=== PATIENT | male | born 1945 | race Caucasian/White ===

== ENCOUNTER 2021-09-23 07:51 | Day surgery (SDC) | payer MEDICARE ==
[~2021-09-23] VITALS: Ht 188 cm; Wt 104.9 kg
[2021-09-23] VITALS (10 sets, daily range): BP systolic 139–165; BP diastolic 81–112
[2021-09-23] MEDS ORDERED: diphenhydrAMINE 25mg capsule PO PRN (08:20)
[2021-09-23] MEDS ORDERED: normal saline 1,000 ML IV SCH (08:20)
[2021-09-23] MEDS ORDERED: POTA8TAB69 PO (08:24)
[2021-09-23] MEDS ORDERED: METF-438 PO (08:24)
[2021-09-23] MEDS ORDERED: FLO0.4C PO (08:24)
[2021-09-23] MEDS ORDERED: TERA10CA4 PO (08:24)
[2021-09-23] MEDS ORDERED: EMPA10TA PO (08:24)
[2021-09-23] MEDS ORDERED: METO200T49 PO (08:24)
[2021-09-23] MEDS ORDERED: FINA5TAB11 PO (08:24)
[2021-09-23] MEDS ORDERED: SIMV10TA98 PO (08:24)
[2021-09-23] MEDS ORDERED: ZOLP5TAB8 PO (08:24)
[2021-09-23] MEDS ORDERED: Vitamin B12 (08:28)
[2021-09-23] MEDS ORDERED: LOSA50TA3 PO (08:28)
[2021-09-23] MEDS ORDERED: cinnamon (08:28)
[2021-09-23] MEDS ORDERED: APIX5TAB3 PO (08:28)
[2021-09-23] MEDS ORDERED: NITR0.4T48 SL (08:28)
[2021-09-23] MEDS ORDERED: Vitamin D (08:32)
[2021-09-23] MEDS ORDERED: Cholestyramine (08:32)
[2021-09-23 08:41] LABS: BASOPHILS % (AUTO) 0.9 % (0-1); EOSINOPHILS # (AUTO) 0.1 X10'3 (0-0.9); HEMATOCRIT 42.2 % (42.0-52.0); HEMOGLOBIN 14.6 g/dl (14.0-17.9); LYMPHOCYTES # (AUTO) 0.7 X10'3 (1.1-4.8); LYMPHOCYTES % (AUTO) 13.4 % (21-51); MEAN CORPUSCULAR HEMOGLOBIN 32.3 PG (27.0-31.0); MEAN CORPUSCULAR HGB CONC 34.5 g/dL (33.0-36.5); MEAN CORPUSCULAR VOLUME 93.8 FL (78-98); MEAN PLATELET VOLUME 8.4 FL (7.4-10.4); MONOCYTES # (AUTO) 0.7 X10'3 (0-0.9); MONOCYTES % (AUTO) 11.7 % (2-12); PLATELET COUNT 141 X10'3 (140-440); RED CELL DISTRIBUTION WIDTH 14.4 % (11.5-14.5); WHITE BLOOD COUNT 5.6 X10'3 (4.5-11.0)
[2021-09-23 08:52] LABS: ALBUMIN 3.7 G/DL (3.4-5.0); ANION GAP 10 (8-16); BLOOD UREA NITROGEN 16 MG/DL (7-18); BUN/CREATININE RATIO 16.2 (5.4-32.0); CALCIUM 8.5 MG/DL (8.5-10.1); CHLORIDE 108 MMOL/L (99-107); CREATININE 0.99 MG/DL (0.60-1.10); GLUCOSE 166 MG/DL (70-104); POTASSIUM 4.2 MMOL/L (3.5-5.1); SODIUM 145 MMOL/L (135-145); TOTAL CARBON DIOXIDE 26.8 MMOL/L (24-32); eGFR 73 ML/MIN
[2021-09-23] MEDS ORDERED: verapamil 2.5 mg/ml inj IV ONE (12:11)
[2021-09-23] MEDS ORDERED: nitroGLYCERIN-Tridil 50MG/D5W 250 ML IV ONE (12:11)
[2021-09-23] MEDS ORDERED: midazolam 1 mg/ML 2ml injection ONE ×2 (12:11→13:30)
[2021-09-23] MEDS ORDERED: fentaNYL/PF 50MCG/1 ML 2ML syringe ONE (12:11)
[2021-09-23] MEDS ORDERED: heparin 1,000unit/ml 10ml vial 10 ML ONE (12:11)
[2021-09-23] MEDS ORDERED: iohexol 350MG/ML 100ml bottle IV ONE ×3 (12:12→13:18)
[2021-09-23] MEDS ORDERED: ticagrelor 90mg tablet ONE (13:55)
[2021-09-23] MEDS ORDERED: cloNIDine 0.1 mg tablet PO ONE (14:25)
[2021-09-23] MEDS ORDERED: HYDROcodone/acetaminophen 5mg/325mg tablet PO PRN (14:35)
[2021-09-23] MEDS ORDERED: HYDROcodone/acetaminophen 10/325mg tab PO PRN (14:35)
== END 2021-09-23 18:13 | disposition home or self-care (01) ==
LOC: SSTAY O 07:51
PROVIDERS: ATTEND Internal Medicine Cardiovascular Disease
DX: R94.39 Abnormal result of other cardiovascular function study (principal); R06.09 Other forms of dyspnea; I25.10 Atherosclerotic heart disease of native coronary artery without angina pectoris; E11.9 Type 2 diabetes mellitus without complications; G47.33 Obstructive sleep apnea (adult) (pediatric); I10 Essential (primary) hypertension; E78.5 Hyperlipidemia, unspecified; Z87.891 Personal history of nicotine dependence; Z79.84 Long term (current) use of oral hypoglycemic drugs; Z79.899 Other long term (current) drug therapy
CPT/HCPCS: 36415; 80048; 83735; 85025; 85610; 92920; 93005; 93458; 99152; 99153; C1725; C1751; C1769; C1894; J1644; J2250; J3010; J3490; J7030; Q0163; Q9967; A5120; A6258; A6449; C1761

== ENCOUNTER 2021-09-27 07:50 | Day surgery (SDC) | payer MEDICARE ==
[2021-09-27] VITALS (10 sets, daily range): BP systolic 107–139; BP diastolic 70–91
[~2021-09-27] VITALS: Ht 188 cm; Wt 104.1 kg
[~2021-09-27 07:50] MED LIST: APIX5TAB3 PO; Cholestyramine; EMPA10TA PO; FINA5TAB11 PO; FLO0.4C PO; LOSA50TA3 PO; METF-438 PO; METO200T49 PO; NITR0.4T48 SL; POTA8TAB69 PO; SIMV10TA98 PO; TERA10CA4 PO; Vitamin B12; Vitamin D; ZOLP5TAB8 PO; cinnamon
[2021-09-27] MEDS ORDERED: diphenhydrAMINE 25mg capsule PO PRN (08:10)
[2021-09-27] MEDS ORDERED: normal saline 1,000 ML IV SCH (08:10)
[2021-09-27 08:48] LABS: BASOPHILS % (AUTO) 0.5 % (0-1); EOSINOPHILS # (AUTO) 0.2 X10'3 (0-0.9); HEMATOCRIT 44.8 % (42.0-52.0); HEMOGLOBIN 15.3 g/dl (14.0-17.9); LYMPHOCYTES # (AUTO) 0.7 X10'3 (1.1-4.8); LYMPHOCYTES % (AUTO) 11.8 % (21-51); MEAN CORPUSCULAR HEMOGLOBIN 31.9 PG (27.0-31.0); MEAN CORPUSCULAR HGB CONC 34.2 g/dL (33.0-36.5); MEAN CORPUSCULAR VOLUME 93.2 FL (78-98); MEAN PLATELET VOLUME 8.7 FL (7.4-10.4); MONOCYTES # (AUTO) 0.6 X10'3 (0-0.9); MONOCYTES % (AUTO) 9.9 % (2-12); NEUTROPHILS # (AUTO) 4.2 X10'3 (1.8-7.7); NEUTROPHILS % (AUTO) 74.8 % (42-75); PLATELET COUNT 164 X10'3 (140-440); RED CELL DISTRIBUTION WIDTH 14.4 % (11.5-14.5); WHITE BLOOD COUNT 5.6 X10'3 (4.5-11.0)
[2021-09-27 09:00] LABS: ANION GAP 10 (8-16); BLOOD UREA NITROGEN 19 MG/DL (7-18); BUN/CREATININE RATIO 17.1 (5.4-32.0); CALCIUM 8.9 MG/DL (8.5-10.1); CHLORIDE 106 MMOL/L (99-107); CREATININE 1.11 MG/DL (0.60-1.10); GLUCOSE 186 MG/DL (70-104); MAGNESIUM 2.1 MG/DL (1.5-2.4); POTASSIUM 4.5 MMOL/L (3.5-5.1); SODIUM 142 MMOL/L (135-145); TOTAL CARBON DIOXIDE 26.4 MMOL/L (24-32); eGFR 64 ML/MIN
[2021-09-27] MEDS ORDERED: TICA90TA2 PO (09:50)
[2021-09-27] MEDS ORDERED: LIDOcaine 1% 30ml preserv. free vial ONE (13:28)
[2021-09-27] MEDS ORDERED: midazolam 1 mg/ML 2ml injection ONE (13:28)
[2021-09-27] MEDS ORDERED: fentaNYL/PF 50MCG/1 ML 2ML syringe ONE ×2 (13:28→15:02)
[2021-09-27] MEDS ORDERED: heparin 1,000unit/ml 10ml vial 10 ML ONE (13:28)
[2021-09-27] MEDS ORDERED: iohexol 350MG/ML 100ml bottle IV ONE (13:29)
[2021-09-27] MEDS ORDERED: nitroGLYCERIN-Tridil 50MG/D5W 250 ML IV ONE (14:45)
[2021-09-27] MEDS ORDERED: proCHLORperazine 10 MG/2 ml inj IV PRN (15:30)
[2021-09-27] MEDS ORDERED: acetaminophen 325mg tablet PO PRN (15:30)
[2021-09-27] MEDS ORDERED: HYDROcodone/acetaminophen 10/325mg tab PO PRN (15:30)
[2021-09-27] MEDS ORDERED: ondansetron/PF 4mg/2ml inj IV PRN (15:30)
[2021-09-27] MEDS ORDERED: HYDROcodone/acetaminophen 5mg/325mg tablet PO PRN (15:30)
[2021-09-27] MEDS ORDERED: furosemide 20 MG/2 ML vial IV ONE (16:30)
--- NOTE | 2021-09-27 17:09 | NUR ---
Patient received stent x 1 during angiogram. New order for 180 mg Brilinta Once.
[2021-09-27] MEDS ORDERED: ticagrelor 90mg tablet PO ONE (17:10)
== END 2021-09-27 19:00 | disposition home or self-care (01) ==
LOC: SSTAY O 07:50
PROVIDERS: ATTEND Internal Medicine Cardiovascular Disease
DX: R94.39 Abnormal result of other cardiovascular function study (principal); I25.10 Atherosclerotic heart disease of native coronary artery without angina pectoris; I10 Essential (primary) hypertension; E78.5 Hyperlipidemia, unspecified; E11.9 Type 2 diabetes mellitus without complications; Z88.0 Allergy status to penicillin; Z88.8 Allergy status to other drugs, medicaments and biological substances; Z87.891 Personal history of nicotine dependence; Z79.01 Long term (current) use of anticoagulants; Z79.899 Other long term (current) drug therapy
CPT/HCPCS: 36415; 80048; 82948; 83735; 85025; 85610; 86885; 86900; 86901; 86920; 92978; 93005; 99152; 99153; C1725; C1753; C1760; C1769; C1874; C1894; C9602; J1644; J1940; J2250; J3010; J3490; J7030; Q0163; Q9967; A4620; A6258; A6402; A6449; C1724

== ENCOUNTER 2022-02-04 12:06 | Outpatient (CLI) | payer MEDICARE ==
[~2022-02-04 12:06] MED LIST changes: -Cholestyramine; -EMPA10TA PO; -METF-438 PO; -METO200T49 PO; -NITR0.4T48 SL; -POTA8TAB69 PO; -Vitamin B12; -Vitamin D; -ZOLP5TAB8 PO; -cinnamon
== END 2022-02-04 23:59 | disposition home or self-care (01) ==
LOC: RAD 12:06
PROVIDERS: ATTEND Surgery
DX: J90 Pleural effusion, not elsewhere classified (principal)
CPT/HCPCS: 71046

== ENCOUNTER 2022-02-07 06:53 | Day surgery (SDC) | payer MEDICARE ==
[~2022-02-07] VITALS: Ht 188 cm; Wt 93.8 kg
[2022-02-07] MEDS ORDERED: LIDOcaine 1% 30ml preserv. free vial SQ STA (07:09)
[2022-02-07 07:10] VITALS: BP 124/65
[2022-02-07] MEDS ORDERED: EMPA10TA PO (07:24)
[2022-02-07] MEDS ORDERED: ATOR10TA70 PO (07:24)
[2022-02-07] MEDS ORDERED: FURO40TA4 PO (07:24)
[2022-02-07] MEDS ORDERED: DIGO125T2 PO (07:24)
[2022-02-07] MEDS ORDERED: METF-900 PO (07:24)
[2022-02-07 08:55] VITALS: BP 133/49
[2022-02-07 09:05] VITALS: BP 108/75
[2022-02-07 09:20] VITALS: BP 117/64
[2022-02-07 09:35] VITALS: BP 108/65
[2022-02-07 09:50] VITALS: BP 111/60
[2022-02-11] MEDS ORDERED: SIMV-341 PO (13:46)
[2022-02-11] MEDS ORDERED: POTA-192 PO (13:46)
[2022-02-11] MEDS ORDERED: METO25TA6 PO (13:46)
[2022-02-11] MEDS ORDERED: ZOLP5TAB8 PO (13:46)
[2022-02-13] MEDS ORDERED: METF-438 PO (11:14)
[2022-02-13] MEDS ORDERED: ATOR10TA70 PO (12:00)
[2022-02-13] MEDS ORDERED: DIGO-20 PO (12:00)
== END 2022-02-07 10:00 | disposition home or self-care (01) ==
LOC: SSTAY O 06:53
PROVIDERS: ATTEND Radiology Vascular & Interventional Radiology
DX: J90 Pleural effusion, not elsewhere classified (principal); E11.9 Type 2 diabetes mellitus without complications; I10 Essential (primary) hypertension; E78.5 Hyperlipidemia, unspecified; I48.20 Chronic atrial fibrillation, unspecified; Z79.899 Other long term (current) drug therapy; Z98.890 Other specified postprocedural states; Z95.1 Presence of aortocoronary bypass graft
CPT/HCPCS: 32555; J3490; C1729

== ENCOUNTER 2022-03-04 08:31 | Outpatient (CLI) | payer MEDICARE ==
[~2022-03-04 08:31] MED LIST changes: +ATOR10TA70 PO; +DIGO-20 PO; +EMPA10TA PO; +HYDR-3972 PO; +METF-900 PO; +METO25TA6 PO; -SIMV10TA98 PO; -TERA10CA4 PO; +ZOLP5TAB8 PO
== END 2022-03-04 23:59 | disposition home or self-care (01) ==
LOC: RAD 08:31
PROVIDERS: ATTEND Surgery
DX: J90 Pleural effusion, not elsewhere classified (principal); J98.4 Other disorders of lung
CPT/HCPCS: 71046